=== PATIENT | male | born 1950 | race Caucasian/White ===

== ENCOUNTER 2016-11-12 17:24 | Outpatient (CLI) | payer MEDICARE, OTHER ==
[2013-06-22 11:42] VITALS: BP 108/60
== END 2016-11-12 17:29 | disposition home or self-care (01) ==
LOC: RT 17:24
PROVIDERS: ATTEND Family Medicine
DX: I48.91 Unspecified atrial fibrillation (principal)

== ENCOUNTER 2016-11-12 17:58 | Emergency (ER) | payer MEDICARE, OTHER ==
[2016-11-12] MEDS ORDERED: ADENOSINE 6 MG/2 ML VIAL IVP ONE (18:02)
[2016-11-12 18:14] LABS: BASOPHILS % 0.4 (0.0-1.5); EOSINOPHILS % 0.5 % (0.0-6.8); LYMPHOCYTES # 4.1 # k/uL (0.6-4.0); MEAN CORPUSCULAR HEMOGLOBIN 29.7 pg (28.0-34.0); MONOCYTES % 6.9 % (0.0-11.0); NEUTROPHILS # 8.7 # k/uL (1.4-7.7)
[2016-11-12] MEDS ORDERED: DILTIAZEM HCL 25 MG/ 5ML VIAL IVP ONE (18:17)
[2016-11-12] MEDS ORDERED: DILTIAZEM HCL 125 MG in 0.9 % SODIUM CHLORIDE 100 ML IV STA ×2 (18:17→18:18)
[2016-11-12] MEDS ORDERED: METOPROLOL TARTRATE 5 MG/5 ML VIAL IVP ONE (18:17)
--- NOTE | 2016-11-12 18:20 | Diagnostic Imaging Report ---
[facility] [address] [facility].[address] 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 NO OTHER COMPLAINTS Findings: The heart size is normal. The lungs are clear. There is no pleural effusion or pneumothorax identified. Left shoulder arthroplasty is in place. Impression: 1. No acute pulmonary disease. Electronically signed on Nov 12, 2016 6:19:[address] [employer]WAY LINE INSTALLER by: Oc STREET
[2016-11-12 18:26] LABS: eGFR (African) > 60; eGFR (Non-African) > 60
--- NOTE | 2016-11-12 18:32 | ED Physician Documentation ---
General Adult - HISTORIAN Historian: patient - HPI Chief Complaint: General Adult Further Comments: yes (66 year old male patient in for outpatient EKG, HR165 SVT. Patient denies any CP, SOB or palpitations. Unsure of onset. Patient states his heart rate was 62 this morning at 0500, when he checked his BP. Patient reports changing HTN medication 10 days ago from nadolol 80mg po qd to metoprolol 25mg po bid.) - ROS CONST: fever (last night) EYES/ENT: nasal drainage CVS/RESP: none GI/: none MS/SKIN/LYMPH: none NEURO/PSYCH: denies: headache, dizziness, difficulty walking, difficulty with speech - PAST HX Past History: hypertension Other History: other (GERD) Surgeries/Procedures: other (left shoulder replacement, right shoulder arthroscopy, knee replacement, spleenectomy) Allergies/Adverse Reactions: Allergies Allergy/AdvReac Type Severity Reaction Status Date / Time No Known Allergies Allergy Unverified 06/22/13 08:21 - SOCIAL HX Smoking History: non-smoker Alcohol Use: occasionally (qhs - 1 cocktail) - FAMILY HX Family History: No - VITAL SIGNS Vital Signs: Vital Signs Temp Pulse Resp BP Pulse Ox 108/60 06/22/13 11:35 - REVIEWED ASSESSMENTS Nursing Assessment Reviewed: Yes Vitals Reviewed: Yes Progress - Progress Progress: Outpatient EKG - HR 165; patient admitted to ER - HR on monitor 165-175, patient denies any CP or SOB EKG #2 1800- SVT with pause due after adenosine 6mg - HR increasing on monitor back to 160s; lopressor 5mg IV given EKG #3 1802 - SVT, ST 128 EKG #4 1805 - SVT vs Afib, will start Cardizem drip and give bolus, HR more irregular on monitor. EKG #5 1813 - Afib rate 116 HR down to 90 with Cardizem 10mg IV bolus and drip at 5mg/hr. Educated patient on treatment of Afib and follow up care. Recommended transfer to [facility] for evaluation by cardiology. Patient prefers [facility]. 1899 Call to [facility] to for transfer. Case discussed with [facility]. Awaiting acceptance. Report to ARON Jackson. [address] Zapien. - EKG/XRAY/CT EKG: rhythm XRAY: chest (negative) ED Results Lab/Radiology - Lab Results Lab Results: Lab Results 11/12/16 18:00 WBC 14.20 K/ul H K/ul (4.00-12.00) RBC 6.02 M/ul H M/ul (3.90-5.20) Hgb 17.9 g/dL g/dL (12.0-18.0) Hct 53.3 % H % (37.0-53.0) MCV 88.4 fl fl (80.0-100.0) MCH 29.7 pg pg (28.0-34.0) MCHC 33.6 g/dL g/dL (30.0-36.0) RDW 13.5 % % (11.3-14.3) Plt Count 487 K/mm3 H K/mm3 (130-400) Neut % (Auto) 61.0 % % (39.0-79.0) Lymph % (Auto) 29.0 % % (16.0-50.0) [place] % (Auto) 6.9 % % (0.0-11.0) Eos % (Auto) 0.5 % % (0.0-6.8) Baso % (Auto) 0.4 (0.0-1.5) Neut # 8.7 # k/uL H # k/uL (1.4-7.7) Lymph # 4.1 # k/uL H # k/uL (0.6-4.0) [place] # 1.0 # k/uL H # k/uL (0.0-0.9) Eos # 0.1 # k/uL # k/uL (0.0-0.6) Baso # 0.1 # k/uL # k/uL (0.0-0.5) Reactive Lymphs % 2.1 % % (0.0-5.0) Reactive Lymphs # 0.3 # k/uL # k/uL (0.0-0.8) - Radiology Radiology Impressions: Chest, 1 view History: SVT. NO OTHER COMPLAINTS Findings: The heart size is normal. The lungs are clear. There is no pleural effusion or pneumothorax identified. Left shoulder arthroplasty is in place. Impression: 1. No acute pulmonary disease. - Orders Orders: ED Orders Category Date Time Status Continuous EKG monitoring Q30M Care 11/12/16 17:58 Active CHEST 1 VIEW [RAD] Stat Exams 11/12/16 17:58 Completed CBC/PLATELET/DIFF Stat Lab 11/12/16 18:00 Completed CMP Stat Lab 11/12/16 18:00 Received CREATINE KINASE Stat Lab 11/12/16 18:00 Received TROPONIN I (cTnI) Stat Lab 11/12/16 18:00 Received UA W/MICRO IF INDICATED Stat Lab 11/12/16 17:58 Ordered Adenosine [Adenocard] Med 11/12/16 18:02 Discontinued 6 mg IVP STAT ONE Diltiazem HCl [Cardizem] Med 11/12/16 18:17 Discontinued 10 mg IVP STAT ONE Diltiazem HCl [Cardizem] 125 mg Med 11/12/16 18:17 Active 0.9 % Sodium Chloride [Sodium Chloride] 100 ml IV 1T Diltiazem HCl [Cardizem] 125 mg Med 11/12/16 18:18 Active 0.9 % Sodium Chloride [Sodium Chloride] 100 ml IV 1T Metoprolol Tartrate [Toprol] Med 11/12/16 18:17 Discontinued 5 mg IVP NOW ONE Oxygen Daily Oxygen 11/12/16 18:00 Ordered EKG WITH COMPARISON Stat Ther 11/12/16 17:58 Ordered EKG WITH COMPARISON Stat Ther 11/12/16 18:02 Ordered EKG WITH COMPARISON Stat Ther 11/12/16 18:05 Ordered EKG WITH COMPARISON Stat Ther 11/12/16 18:05 Ordered General Adult Physical Exam - PHYSICAL EXAM GENERAL APPEARANCE: moderate distress EENT: eye inspection normal, ENT inspection normal, pharynx normal, no signs of dehydration, SOFIYA, no nystagmus, TM's nml RESPIRATORY: no resp distress, chest non-tender, breath sounds normal CVS: heart sounds normal, equal pulses, no murmur, no gallop, PMI nml, no JVD, no friction rub, tachycardia (SVT) ABDOMEN: soft, no organomegaly, normal bowel sounds, no abdominal bruit, no distension SKIN: normal color, warm/dry, NR, INT, PAL, DR EXTREMITIES: non-tender, normal range of motion, no evidence of injury, no edema , J, AUTOMOTIVE HARDWARE ENGINEER NEURO: oriented X3, CN's nml as tested, motor nml, sensation nml, mood/affect nml Discharge Clincal Impression: Atrial fibrillation with RVR, Leukocytosis, Hypokalemia Referrals: Frank Jenkins MD [Primary Care Provider] - 2 Days Condition: Fair Disposition: 02 XFER SHT-TRM HOSP Decision to Admit: [id number] Decision Time: 19:09
[2016-11-12] MEDS ORDERED: POTASSIUM CHLORIDE 20 MEQ TABLET.ER PO ONE (18:33)
[2016-11-12] MEDS ORDERED: POTASSIUM CHLORIDE 20 MEQ/10ML VIAL IV ONE (18:46)
[2016-11-12] MEDS ORDERED: PHARMACY KEY 1 EACH EACH MC ONE (18:52)
[2016-11-12] MEDS ORDERED: MAGNESIUM SULFATE/D5W 200 ML IV ONE (18:57)
[2016-11-12] MEDS ORDERED: 0.9 % SODIUM CHLORIDE 1,000 ML IV ONE (19:33)
[2016-11-12 19:35] VITALS: BP 108/74
[2016-11-12] MEDS ORDERED: 0.9 % SODIUM CHLORIDE 1,000 ML IV SCH (20:00)
== END 2016-11-12 19:32 | disposition short-term general hospital (02) ==
LOC: ED 17:58
DX: I48.91 Unspecified atrial fibrillation (principal); D72.829 Elevated white blood cell count, unspecified; E87.6 Hypokalemia
CPT/HCPCS: 71010; 80053; 82550; 84484; 85025; A9270; J0153; J3475; J3490; J7030; 96361; 96374; 96375; 99283; 99284; S1016

== ENCOUNTER 2017-10-24 14:07 | Outpatient (CLI) | payer MEDICARE, OTHER ==
[2017-10-24 14:30] LABS: BASOPHILS % 0.7 (0.0-1.5); EOSINOPHILS % 2.7 % (0.0-6.8); MEAN CORPUSCULAR HEMOGLOBIN 31.2 pg (28.0-34.0); MEAN CORPUSCULAR VOLUME 94.4 fl (80.0-100.0); MONOCYTES % 6.5 % (0.0-11.0); NEUTROPHILS # 7.8 # k/uL (1.4-7.7)
[2017-10-24 15:08] LABS: eGFR (African) > 60; eGFR (Non-African) > 60
== END 2017-10-24 14:10 ==
LOC: LAB 14:07
PROVIDERS: ATTEND Family Medicine
DX: I10 Essential (primary) hypertension (principal); I48.91 Unspecified atrial fibrillation; Z79.01 Long term (current) use of anticoagulants
CPT/HCPCS: 36415; 80053; 80061; 85025

== ENCOUNTER 2018-10-02 17:40 | Outpatient (CLI) | payer MEDICARE, OTHER ==
[2018-10-02 18:10] LABS: eGFR (Non-African) > 60
[2018-10-02 18:50] LABS: MEAN CORPUSCULAR HEMOGLOBIN 30.7 pg (28.0-34.0)
[2018-10-02 21:01] LABS: SEGMENTED NEUTROPHILS % 55 % (39-79)
[2018-10-02 21:02] LABS: EOSINOPHILS % 2 % (0-7); MONOCYTES % 8 % (0-11)
[2018-10-02 21:03] LABS: PLT EST. EST. AGREES W/PLT CT
== END 2018-10-02 17:45 ==
LOC: LABRHC 17:40
PROVIDERS: ATTEND Family Medicine
DX: I10 Essential (primary) hypertension (principal); E78.5 Hyperlipidemia, unspecified
CPT/HCPCS: 80053; 80061; 85025

== ENCOUNTER 2019-09-17 16:48 | Outpatient (CLI) | payer MEDICARE, OTHER ==
[2019-09-17 17:53] LABS: A1C 5.4 % (<5.7)
[2019-09-17 17:57] LABS: eGFR (Non-African) > 60
[2019-09-17 17:58] LABS: HDL 45 mg/dL (>40)
== END 2019-09-17 16:53 ==
LOC: LAB 16:48
PROVIDERS: ATTEND Family Medicine
DX: I10 Essential (primary) hypertension (principal); R73.9 Hyperglycemia, unspecified
CPT/HCPCS: 36415; 80053; 80061; 83036